=== PATIENT | male | born 1950 | race Caucasian/White ===

== ENCOUNTER 2018-01-01 19:43 | Emergency (ER) | payer OTHER ==
[2018-01-01 19:50] VITALS: BP 149/75; PULSE 77; TEMP 98; BMI 31.1
[2018-01-01] MEDS ORDERED: BACITRACIN 15 GM TUBE TOPICAL OINTMENT TP ONE (20:49)
--- NOTE | 2018-01-01 20:50 | PDOC ---
History of Present Illness - General History Source: Patient Exam Limitations: No Limitations - History of Present Illness Initial Comments: 01/01/18 21:12 CC: Erythema to wound HPI: The patient is a 67 year old male, with a significant past medical history of hypertension, who presents to the emergency department with, two days of worsening erythema of the bilateral lower extremities to wounds. As per patient , his wound care is followed up with Dr. Pinedo. He reports taking off the bandages yesterday when he observed the erythema and irritation. He denies any recent fevers, chills, headache or dizziness. He denies any recent nausea, vomit, diarrhea or constipation. He denies any recent chest pain or shortness of breath. He denies any recent dysuria, frequency, urgency or hematuria. Allergies: Penicillins Social History: Nonsmoker. Denies EtOH use and recreational drug use. Primary Care Physician: Dr. Nair <Trey Babb - Last Filed: 01/01/18 23:40> <Ever Newton - Last Filed: 01/02/18 00:13> - General Chief Complaint: Redness To Affected Area Stated Complaint: EDEMA Time Seen by Provider: 01/01/18 20:39 Past History <Trey Babb - Last Filed: 01/01/18 23:40> - Past Medical History Cancer: Yes (Bladder-tumor removed) COPD: No HTN: Yes - Surgical History Appendectomy: Yes - Immunization History Immunization Up to Date: Yes - Suicide/Smoking/Psychosocial Hx Smoking History: Former smoker Have you smoked in the past 12 months: No If you are a former smoker, when did you quit?: 9 years ago Information on smoking cessation initiated: No <Ever Newton - Last Filed: 01/02/18 00:13> - Past Medical History Allergies/Adverse Reactions: Allergies Allergy/AdvReac Type Severity Reaction Status Date / Time Penicillins Allergy Verified 01/01/18 19:47 Home Medications: Ambulatory Orders Aspirin [ASA -] 1 tab PO DAILY 09/03/17 Benicar - 20 mg PO DAILY 09/03/17 Review of Systems - Review of Systems Able to Perform ROS?: Yes Comments:: 01/01/18 21:12 ROS: A complete review of 10 out of 10 review of systems is taken and is negative apart from what is previously mentioned below and in the HPI. <Trey Babb - Last Filed: 01/01/18 23:40> *Physical Exam - Vital Signs Last Vital Signs Temp Pulse Resp BP Pulse Ox 98 F 77 18 149/75 96 01/01/18 19:48 01/01/18 19:48 01/01/18 19:48 01/01/18 19:48 01/01/18 19:48 - Physical Exam Comments: 01/01/18 21:12 Vitals: Triage vital signs reviewed General Appearance: No acute distress, well nourished, well developed Head: Atraumatic Neck: Supple; No nuchal rigidity Chest Wall: Nontender Cardiac: Regular rate and rhythm, no murmurs, no rubs, no gallops Lungs: Clear to auscultation bilateral, good air movement bilaterally Abdomen: Soft, nondistended, normal bowel sounds, nontender to palpation Genitourinary: Rectal: Exam deferred Extremities: Full range of motion to all extremities, no cyanosis, clubbing, or edema Skin: +Right lower extremity 25x10 cm area of raw excoriated skin without cellulitis or pus. Left lower extremity 5x5 cm area of raw excoriated skin without cellulitis or pus. Neuro: AOX3; Cranial Nerves 2-12 grossly intact, Strength intact to all extremities, Sensation intact to all extremities, gait normal Psych: Normal mood, normal affect <Trey Babb - Last Filed: 01/01/18 23:40> - Vital Signs Last Vital Signs Temp Pulse Resp BP Pulse Ox 98 F 77 18 149/75 96 01/01/18 19:48 01/01/18 19:48 01/01/18 19:48 01/01/18 19:48 01/01/18 19:48 <Ever Newton - Last Filed: 01/02/18 00:13> ED Treatment Course - Medications Given in the ED: ED Medications Discontinued Medications Generic Name Dose Route Start Last Admin Trade Name Freq PRN Reason Stop Dose Admin Bacitracin 1 applic 01/01/18 20:49 01/01/18 20:58 Bacitracin - TP 01/01/18 20:50 1 applic ONCE ONE Administration <Trey Babb - Last Filed: 01/01/18 23:40> Medical Decision Making - Medical Decision Making 01/01/18 21:12 Plan is to apply bacitracin to wounds. <Trey Babb - Last Filed: 01/01/18 23:40> - Medical Decision Making Patient with chronic lower extremity wounds followed in wound care wrapping was placed last week patient was instructed if painful he could remove the wrapping. When he removed the wrapping his legs appeared red and excoriated They appear red and irritated consistent with a contact dermatitis as opposed to cellulitic and infected Findings discussed with Dr. Pinedo. Does not appear to be infected. Patient has follow-up with Dr. Pinedo in one day. We'll cover with bacitracin wrap Findings, the need for follow-up and strict return instructions discussed with patient. <Ever Newton - Last Filed: 01/02/18 00:13> *DC/Admit/Observation/Transfer - Attestations Scribe Attestion: 01/01/18 21:13 Documentation prepared by Trey Babb, acting as medical supervisor for Ever Newton MD. <Trey Babb - Last Filed: 01/01/18 23:40> <Ever Newton - Last Filed: 01/02/18 00:13> Diagnosis at time of Disposition: Dermatitis - Discharge Dispostion Disposition: HOME - Referrals Referrals: Adi Nair [Primary Care Provider] - - Patient Instructions Additional Instructions: Apply bacitracin to bilateral lower extremities twice a day. Follow with Dr. Pinedo on Wednesday. Return to the emergency department immediately for any fever chills spreading redness or for any concerns. - Post Discharge Activity
[2018-01-01] MEDS ORDERED: BACITRACIN 0.9 GM PACKET ONE (20:57)
== END 2018-01-01 21:14 | disposition home or self-care (01) ==
LOC: JER 19:43
DX: L24.9 Irritant contact dermatitis, unspecified cause (principal); R60.0 Localized edema; I10 Essential (primary) hypertension; Z79.82 Long term (current) use of aspirin
CPT/HCPCS: 99282-25

== ENCOUNTER 2018-02-02 19:20 | Inpatient (IN) | payer OTHER ==
[2018-02-02 19:31] VITALS: BMI 31.1
--- NOTE | 2018-02-02 19:31 | PDOC ---
Rapid Medical Evaluation Chief Complaint: Wound Time Seen by Provider: 02/02/18 19:29 Medical Evaluation: Allergies Allergy/AdvReac Type Severity Reaction Status Date / Time Penicillins Allergy Verified 01/03/18 12:27 02/02/18 19:29 S: b/l lower extremity wound infection. send by Dr. arvizu for admission. denies fever/ chills. c/o burning and discharge from the wound. O: patient alert ox 4. erythema to b/l lower extremity. A: wound infection P: pre admit labs and blood culture. patient to the Er for further management of care.
[2018-02-02 20:08] LABS: BASO % 1.1 % (0-2.0); EOS % 1.4 % (0-4.5); HEMATOCRIT 37.2 % (35.4-49); HEMOGLOBIN 12.7 GM/dL (11.7-16.9); LYMPH % 18.6 % (8-40); MCH 29.3 pg (25.7-33.7); MCHC 34.1 g/dl (32.0-35.9); MEAN PLT VOLUME 8.4 fl (7.5-11.1); MONO % 8.1 % (3.8-10.2); NEUT % 70.8 % (42.8-82.8); PLATELET COUNT 284 K/MM3 (134-434); RBC 4.32 M/mm3 (4.00-5.60); RDW 15.2 % (11.9-15.9); WHITE BLOOD COUNT 8.1 K/mm3 (4.0-10.0)
[2018-02-02 20:09] LABS: URINE APPEARANCE CLEAR; URINE BILIRUBIN NEGATIVE (<2.0 mg/dL); URINE COLOR LTYELLOW; URINE GLUCOSE (UA) NEGATIVE (NEGATIVE); URINE KETONE NEGATIVE (NEGATIVE); URINE LEUK ESTERASE NEGATIVE (NEGATIVE); URINE NITRITE NEGATIVE (NEGATIVE); URINE PROTEIN NEGATIVE (NEGATIVE); URINE UROBILINOGEN NEGATIVE mg/dL (0.2-1.0)
[2018-02-02 20:25] LABS: INR 1.16 (0.82-1.09); PROTHROMBIN TIME (PATIENT) 13.1 SEC (9.7-13.0)
[2018-02-02 20:27] LABS: ACTIVATED PTT 32.3 SECONDS (26.9-34.4)
[2018-02-02 20:59] LABS: ALBUMIN 3.7 g/dl (3.4-5.0); ALK PHOS 85 U/L (45-117); ANION GAP 6 (8-16); BILIRUBIN,TOTAL 0.5 mg/dL (0.2-1.0); BLOOD UREA NITROGEN 19 mg/dL (7-18); CALCIUM 8.2 mg/dL (8.5-10.1); CHLORIDE 108 mmol/L (98-107); CO2 25 mmol/L (21-32); CREATININE 0.9 mg/dL (0.7-1.3); GLUCOSE,RANDOM 109 mg/dL (74-106); POTASSIUM 3.8 mmol/L (3.5-5.1); SGOT/AST 19 U/L (15-37); SGPT/ALT 15 U/L (12-78); SODIUM 139 mmol/L (136-145); TOT PROT 7.3 g/dl (6.4-8.2)
--- NOTE | 2018-02-02 21:08 | PDOC ---
History of Present Illness - General History Source: Patient Exam Limitations: No Limitations - History of Present Illness Initial Comments: 02/02/18 22:17 The patient is a 67 year old male with significant past medical history of HTN presents to the emergency department with non healing wound. The patient reports he has bilateral lower extremity wound that's been progressively getting worse. The patient reports wound drainage for the past 4 months. The patient reports getting the wound wrapped with profore on Wednesday, which was changed on Wednesday due to excess wound drainage. The patient reports he was sent in by Dr. García to be admitted. Denies taking any medication today. Denies fever, chills, nausea or vomiting. Surgical History: The patient states he has bilateral femoral stents placed the beginning of last year. Allergies: Penicillin. Social History: Patient denies any history of smoking, use of alcohol or recreational drug. PCP: Thee Larson <Sonia Lozoya - Last Filed: 02/02/18 22:18> <Livan Ku - Last Filed: 02/02/18 23:05> - General Chief Complaint: Wound Stated Complaint: PCP SENT Time Seen by Provider: 02/02/18 19:29 Past History <Sonia Lozoya - Last Filed: 02/02/18 22:18> - Past Medical History Cancer: Yes (Bladder-tumor removed) COPD: No HTN: Yes - Surgical History Appendectomy: Yes - Immunization History Immunization Up to Date: Yes - Suicide/Smoking/Psychosocial Hx Smoking History: Never smoked Have you smoked in the past 12 months: No If you are a former smoker, when did you quit?: 9 years ago Information on smoking cessation initiated: No Hx Alcohol Use: No Drug/Substance Use Hx: No <Livan Ku - Last Filed: 02/02/18 23:05> - Past Medical History Allergies/Adverse Reactions: Allergies Allergy/AdvReac Type Severity Reaction Status Date / Time Penicillins Allergy Verified 01/03/18 12:27 Home Medications: Ambulatory Orders Aspirin [ASA -] 1 tab PO DAILY 09/03/17 Benicar - 20 mg PO DAILY 09/03/17 Review of Systems - Review of Systems Able to Perform ROS?: Yes Comments:: 02/02/18 22:18 CONSTITUTIONAL: No fever, no chills, no fatigue EYES: No visual changes ENT: No ear pain, no sore throat CARDIOVASCULAR: No chest pain, no palpitations RESPIRATORY: No cough, no SOB GI: No abdominal pain, no nausea, no vomiting, no constipation, no diarrhea GENITOURINARY: No dysuria, no frequency, no hematuria MUSKULOSKELETAL: (+) Bilateral non healing. wound. No backpain, no joint pain, no myalgias SKIN: No rash NEURO: No headache <Sonia Lozoya - Last Filed: 02/02/18 22:18> *Physical Exam - Vital Signs Last Vital Signs Temp Pulse Resp BP Pulse Ox 98.6 F 87 18 142/70 97 02/02/18 19:30 02/02/18 19:30 02/02/18 19:30 02/02/18 19:30 02/02/18 19:30 <Sonia Lozoya - Last Filed: 02/02/18 22:18> - Vital Signs Last Vital Signs Temp Pulse Resp BP Pulse Ox 98.6 F 87 18 142/70 97 02/02/18 19:30 02/02/18 19:30 02/02/18 19:30 02/02/18 19:30 02/02/18 19:30 - Physical Exam Comments: 02/02/18 23:02 EXAMINATION CONSTITUTIONAL: Well-appearing; well-nourished; in no apparent distress HEAD: Normocephalic; atraumatic EYES: PERRL; EOM intact ENMT: External appears normal; normal oropharynx NECK: Supple; non-tender; no cervical lymphadenopathy CARD: Normal S1, S2; no murmurs, rubs, or gallops RESP: Normal chest excursion with respiration; breath sounds clear and equal bilaterally; no wheezes, rhonchi, or rales ABD: Soft, non-distended; non-tender; no palpable organomegaly, no palpable hernias EXT: + Extensive erythroderma bilaterally with several large superficial nonhealing ulcers is draining serous sanguinous fluid; + femoral pulses are +2 bilaterally. Popliteal pulses are +1 bilaterally; dorsalis pedis/tibialis posterior are significantly decreased bilaterally; cap refill is less than 2 seconds; SKIN: Warm, dry, see above NEURO: No focal neurological deficiencies. <Livan Ku - Last Filed: 02/02/18 23:05> ED Treatment Course - LABORATORY CBC & Chemistry Diagram: 02/02/18 19:53 02/02/18 19:53 - ADDITIONAL ORDERS Additional order review: Laboratory Results 02/02/18 02/02/18 02/02/18 20:02 19:53 19:53 PT with INR INR PTT (Actin FS) Sodium 139 Potassium 3.8 Chloride 108 H Carbon Dioxide 25 Anion Gap 6 L BUN 19 H Creatinine 0.9 Creat Clearance w eGFR > 60 Random Glucose 109 H Calcium 8.2 L Total Bilirubin 0.5 AST 19 ALT 15 Alkaline Phosphatase 85 Troponin I < 0.02 Total Protein 7.3 Albumin 3.7 Urine Color Ltyellow Urine Appearance Clear Urine pH 5.0 Ur Specific [place] 1.016 Urine Protein Negative Urine Glucose (UA) Negative Urine Ketones Negative Urine Blood Negative Urine Nitrite Negative Urine Bilirubin Negative Urine Urobilinogen Negative Ur Leukocyte Esterase Negative 02/02/18 19:53 PT with INR 13.10 H INR 1.16 H PTT (Actin FS) 32.3 Sodium Potassium Chloride Carbon Dioxide Anion Gap BUN Creatinine Creat Clearance w eGFR Random Glucose Calcium Total Bilirubin AST ALT Alkaline Phosphatase Troponin I Total Protein Albumin Urine Color Urine Appearance Urine pH Ur Specific [place] Urine Protein Urine Glucose (UA) Urine Ketones Urine Blood Urine Nitrite Urine Bilirubin Urine Urobilinogen Ur Leukocyte Esterase 02/02/18 19:53 RBC 4.32 MCV 86.0 MCHC 34.1 RDW 15.2 MPV 8.4 Neutrophils % 70.8 Lymphocytes % 18.6 Monocytes % 8.1 Eosinophils % 1.4 Basophils % 1.1 <Sonia Lozoya - Last Filed: 02/02/18 22:18> - LABORATORY CBC & Chemistry Diagram: 02/02/18 19:53 02/02/18 19:53 - ADDITIONAL ORDERS Additional order review: Laboratory Results 02/02/18 02/02/18 02/02/18 20:02 19:53 19:53 PT with INR INR PTT (Actin FS) Sodium 139 Potassium 3.8 Chloride 108 H Carbon Dioxide 25 Anion Gap 6 L BUN 19 H Creatinine 0.9 Creat Clearance w eGFR > 60 Random Glucose 109 H Calcium 8.2 L Total Bilirubin 0.5 AST 19 ALT 15 Alkaline Phosphatase 85 Troponin I < 0.02 Total Protein 7.3 Albumin 3.7 Urine Color Ltyellow Urine Appearance Clear Urine pH 5.0 Ur Specific [place] 1.016 Urine Protein Negative Urine Glucose (UA) Negative Urine Ketones Negative Urine Blood Negative Urine Nitrite Negative Urine Bilirubin Negative Urine Urobilinogen Negative Ur Leukocyte Esterase Negative 02/02/18 19:53 PT with INR 13.10 H INR 1.16 H PTT (Actin FS) 32.3 Sodium Potassium Chloride Carbon Dioxide Anion Gap BUN Creatinine Creat Clearance w eGFR Random Glucose Calcium Total Bilirubin AST ALT Alkaline Phosphatase Troponin I Total Protein Albumin Urine Color Urine Appearance Urine pH Ur Specific [place] Urine Protein Urine Glucose (UA) Urine Ketones Urine Blood Urine Nitrite Urine Bilirubin Urine Urobilinogen Ur Leukocyte Esterase 02/02/18 19:53 RBC 4.32 MCV 86.0 MCHC 34.1 RDW 15.2 MPV 8.4 Neutrophils % 70.8 Lymphocytes % 18.6 Monocytes % 8.1 Eosinophils % 1.4 Basophils % 1.1 <Livan Ku - Last Filed: 02/02/18 23:05> Medical Decision Making - Medical Decision Making 02/02/18 23:03 Patient is a 67-year-old male with history of hypertension, peripheral vascular disease who presents with worsening likely infected nonhealing lower extremity ulcers. Previously obtain wound culture is noted for MRSA sensitive to vancomycin and Zyvox. Patient referred to the ER for IV vancomycin therapy. Case discussed with Dr. Keith ragland. We'll administer vancomycin 15 mg/kg. Will admit. <Livan Ku - Last Filed: 02/02/18 23:05> *DC/Admit/Observation/Transfer <Sonia Lozoya - Last Filed: 02/02/18 22:18> - Discharge Dispostion Admit: Yes - Attestations Physician Attestion: 02/02/18 23:02 The documentation was prepared by the scribe under my direct supervision. I have reviewed the documentation which correctly represents the findings, medical decision-making and critical action taken by me. <Livan Ku - Last Filed: 02/02/18 23:05> Diagnosis at time of Disposition: Cellulitis of leg Qualifiers: Laterality: unspecified laterality Qualified Code(s): L03.119 - Cellulitis of unspecified part of limb - Discharge Dispostion Condition at time of disposition: Fair
[2018-02-02] MEDS ORDERED: VANCOMYCIN 1,500 MG in DEXTROSE 5%-WATER - 250 ML IVPB ONE (21:43)
[2018-02-02] MEDS ORDERED: VANCOMYCIN 500 MG VIAL (RESTRICTED TO ID ONLY) ONE (21:50)
[2018-02-02] MEDS ORDERED: VANCOMYCIN 1 GRAM (PRE-DOCKED) 1,000 MG/250 ML BAG IVPB ONE (21:50)
[2018-02-02] MEDS ORDERED: ACETAMINOPHEN 325 MG TABLET (FP) PO PRN (23:00)
[2018-02-02] MEDS ORDERED: SILVER SULFADIAZINE 1% TOP CREAM 50 GM JAR TP ONE ×2 (23:55→23:57)
[2018-02-03 07:33] LABS: BASO % 0.6 % (0-2.0); EOS % 1.3 % (0-4.5); HEMATOCRIT 37.3 % (35.4-49); HEMOGLOBIN 12.7 GM/dL (11.7-16.9); LYMPH % 16.1 % (8-40); MCH 29.4 pg (25.7-33.7); MEAN CELL VOLUME 86.6 fl (80-96); MEAN PLT VOLUME 8.3 fl (7.5-11.1); MONO % 10.5 % (3.8-10.2); NEUT % 71.5 % (42.8-82.8); PLATELET COUNT 275 K/MM3 (134-434); RBC 4.31 M/mm3 (4.00-5.60); WHITE BLOOD COUNT 7.5 K/mm3 (4.0-10.0)
[2018-02-03 07:53] LABS: ALBUMIN 3.4 g/dl (3.4-5.0); ANION GAP 6 (8-16); BLOOD UREA NITROGEN 15 mg/dL (7-18); CALCIUM 8.2 mg/dL (8.5-10.1); CHLORIDE 107 mmol/L (98-107); CO2 26 mmol/L (21-32); GLUCOSE,RANDOM 87 mg/dL (74-106); POTASSIUM 4.2 mmol/L (3.5-5.1); SODIUM 139 mmol/L (136-145)
[2018-02-03 07:57] LABS: ALK PHOS 79 U/L (45-117); BILIRUBIN,TOTAL 0.8 mg/dL (0.2-1.0); CREATININE 0.7 mg/dL (0.7-1.3); SGOT/AST 18 U/L (15-37); SGPT/ALT 14 U/L (12-78); TOT PROT 6.8 g/dl (6.4-8.2)
--- NOTE | 2018-02-03 10:23 | HP ---
Admitting History and Physical - Primary Care Physician PCP: Matias Ruiz - Admission History of Present Illness: -67 year old male with significant past medical history of HTN presents to the emergency department with non healing wound. The patient reports he has bilateral lower extremity wound that's been progressively getting worse. The patient reports wound drainage for the past 4 months. The patient reports getting the wound wrapped with profore on Wednesday, which was changed on Wednesday due to excess wound drainage. sent to ER by ID he had bilateral femoral stents placed the beginning of last year. A - Past Medical History Cardiovascular: Yes: HTN, Other (pvd) Heme/Onc: Yes: Cancer (bladder cancer) - Past Surgical History Past Surgical History: Yes: Appendectomy, Stent, Vein Stripping/Ligation (b/l common iliac vein stent) - Smoking History Smoking history: Never smoked Have you smoked in the past 12 months: No If you are a former smoker, when did you quit?: 9 years ago - Alcohol/Substance Use Hx Alcohol Use: No Home Medications - Allergies Allergies/Adverse Reactions: Allergies Allergy/AdvReac Type Severity Reaction Status Date / Time Penicillins Allergy Verified 01/03/18 12:27 - Home Medications Home Medications: Ambulatory Orders Aspirin [ASA -] 1 tab PO DAILY 09/03/17 Benicar - 20 mg PO DAILY 09/03/17 Physical Examination Vital Signs: Vital Signs Temperature 98.3 F 02/03/18 06:00 Pulse Rate 76 02/03/18 06:00 Respiratory Rate 16 02/03/18 06:00 Blood Pressure 126/61 02/03/18 06:00 O2 Sat by Pulse Oximetry (%) 97 02/03/18 03:15 Constitutional: Yes: No Distress HENT: Yes: Atraumatic Neck: Yes: Supple Cardiovascular: Yes: Regular Rate and Rhythm Respiratory: Yes: CTA Bilaterally Gastrointestinal: Yes: Normal Bowel Sounds Extremities: Yes: Other (chronic skin changes of pvd superimposed cellulitis) Neurological: Yes: Alert, Oriented Labs: CBC, BMP 02/03/18 06:35 02/03/18 06:35 Problem List - Problems (1) Cellulitis of leg Assessment/Plan: on abx per id fu labs Code(s): L03.119 - CELLULITIS OF UNSPECIFIED PART OF LIMB Qualifiers: Laterality: unspecified laterality Qualified Code(s): L03.119 - Cellulitis of unspecified part of limb (2) Venous insufficiency Assessment/Plan: dr arvizu on board Code(s): I87.2 - VENOUS INSUFFICIENCY (CHRONIC) (PERIPHERAL) Assessment/Plan Laboratory Tests 02/02/18 02/02/18 02/02/18 19:53 19:53 19:53 WBC 8.1 RBC 4.32 Hgb 12.7 Hct 37.2 MCV 86.0 MCH 29.3 MCHC 34.1 RDW 15.2 Plt Count 284 MPV 8.4 Neutrophils % 70.8 Lymphocytes % 18.6 Monocytes % 8.1 Eosinophils % 1.4 Basophils % 1.1 PT with INR 13.10 H INR 1.16 H PTT (Actin FS) 32.3 Sodium 139 Potassium 3.8 Chloride 108 H Carbon Dioxide 25 Anion Gap 6 L BUN 19 H Creatinine 0.9 Creat Clearance w eGFR > 60 Random Glucose 109 H Calcium 8.2 L Total Bilirubin 0.5 AST 19 ALT 15 Alkaline Phosphatase 85 Troponin I Total Protein 7.3 Albumin 3.7 Urine Color Urine Appearance Urine pH Ur Specific [place] Urine Protein Urine Glucose (UA) Urine Ketones Urine Blood Urine Nitrite Urine Bilirubin Urine Urobilinogen Ur Leukocyte Esterase 02/02/18 02/02/18 02/03/18 19:53 20:02 06:35 WBC 7.5 RBC 4.31 Hgb 12.7 Hct 37.3 MCV 86.6 MCH 29.4 MCHC 34.0 RDW 15.0 Plt Count 275 MPV 8.3 Neutrophils % 71.5 Lymphocytes % 16.1 Monocytes % 10.5 H Eosinophils % 1.3 Basophils % 0.6 PT with INR INR PTT (Actin FS) Sodium Potassium Chloride Carbon Dioxide Anion Gap BUN Creatinine Creat Clearance w eGFR Random Glucose Calcium Total Bilirubin AST ALT Alkaline Phosphatase Troponin I < 0.02 Total Protein Albumin Urine Color Ltyellow Urine Appearance Clear Urine pH 5.0 Ur Specific [place] 1.016 Urine Protein Negative Urine Glucose (UA) Negative Urine Ketones Negative Urine Blood Negative Urine Nitrite Negative Urine Bilirubin Negative Urine Urobilinogen Negative Ur Leukocyte Esterase Negative 02/03/18 06:35 WBC RBC Hgb Hct MCV MCH MCHC RDW Plt Count MPV Neutrophils % Lymphocytes % Monocytes % Eosinophils % Basophils % PT with INR INR PTT (Actin FS) Sodium 139 Potassium 4.2 Chloride 107 Carbon Dioxide 26 Anion Gap 6 L BUN 15 D Creatinine 0.7 D Creat Clearance w eGFR > 60 Random Glucose 87 D Calcium 8.2 L Total Bilirubin 0.8 D AST 18 ALT 14 Alkaline Phosphatase 79 Troponin I Total Protein 6.8 Albumin 3.4 Urine Color Urine Appearance Urine pH Ur Specific [place] Urine Protein Urine Glucose (UA) Urine Ketones Urine Blood Urine Nitrite Urine Bilirubin Urine Urobilinogen Ur Leukocyte Esterase Active Medications Generic Name Dose Route Start Last Admin Trade Name Carie PRN Reason Stop Dose Admin Acetaminophen 650 mg 02/02/18 23:00 Tylenol - PO Q6H PRN FEVER Aspirin 81 mg 02/03/18 10:00 Asa - PO DAILY ENMANUEL Heparin Sodium (Porcine) 5,000 unit 02/03/18 10:00 Heparin - SQ BID ENMANUEL Valsartan 160 mg 02/03/18 10:00 Diovan - PO DAILY ENMANUEL Active Medications Generic Name Dose Route Start Last Admin Trade Name Aaronq PRN Reason Stop Dose Admin Acetaminophen 650 mg 02/02/18 23:00 Tylenol - PO Q6H PRN FEVER Aspirin 81 mg 02/03/18 10:00 02/04/18 10:43 Asa - PO 81 mg DAILY ENMANUEL Administration Heparin Sodium (Porcine) 5,000 unit 02/03/18 10:00 02/04/18 10:42 Heparin - SQ 5,000 unit BID ENMANUEL Administration Vancomycin HCl 1,250 mg/ 250 mls @ 250 mls/2 hr 02/03/18 14:30 02/03/18 16:42 Dextrose IVPB 250 mls/2 hr Q24H ENMANUEL Administration Protocol Valsartan 160 mg 02/03/18 10:00 02/04/18 10:43 Diovan - PO 160 mg DAILY ENMANUEL Administration
[2018-02-03] MEDS: ASPIRIN 81 MG CHEWABLE TABLETS PO SCH (11:00)
[2018-02-03] MEDS: VALSARTAN 160 MG TABLET (UD) PO SCH (11:00)
[2018-02-03] MEDS: HEPARIN NA (PORCINE) 5,000 UNITS/ML 1ML VIAL SQ SCH ×2 (11:00→21:32)
--- NOTE | 2018-02-03 11:27 | EKG ---
Test Reason : Blood Pressure : / mmHG Vent. Rate : 073 BPM Atrial Rate : 073 BPM P-R Int : 140 ms QRS Dur : 092 ms QT Int : 398 ms P-R-T Axes : 052 -06 021 degrees QTc Int : 438 ms NORMAL SINUS RHYTHM NORMAL ECG NO PREVIOUS ECGS AVAILABLE Confirmed by CHELSEA BLANCA MD ([id number]) on 02/03/2018 11:27:28 AM Referred By: Confirmed By:CHELSEA BLANCA MD
--- NOTE | 2018-02-03 14:26 | CON.ID ---
Consult Consult Specialty:: infectious diseases Reason for Consultation:: mrsa wound infection - History of Present Illness Chief Complaint: non healing of the wounds mrsa wound infection History of Present Illness: -67 year old male with significant past medical history of HTN presents who has been having non healing of his wounds for more than 6 months now. patient had been treated as outpatient and failed treatment. patient started ahving increased pain since last couple of months and in the last few weeks it increased a lot followed with profuse discharge and the wounds becoming more red. his rt ext especially is soaking the cx were send from the right ext and found to ahve mrsa of the wound.Also his wounds started having a foul smell. The patient reports he has bilateral lower extremity wound that's been progressively getting worse. The patient reports wound drainage for the past 4 months. The patient reports getting the wound wrapped with profore on Wednesday, which was changed on Wednesday due to excess wound drainage. patient also has poor vasculaer supply and had bilateral stents placed patient runs a daily business currently his wounds are infected with foul smell and profuse discharge - History Source History Provided By: Patient Limitations to Obtaining History: No Limitations - Past Medical History Cardio/Vascular: Yes: HTN - Past Surgical History Past Surgical History: Yes: Appendectomy, Stent, Vein Stripping/Ligation (b/l common iliac vein stent) - Alcohol/Substance Use Hx Alcohol Use: No - Smoking History Smoking history: Never smoked Have you smoked in the past 12 months: No If you are a former smoker, when did you quit?: 9 years ago Home Medications - Allergies Allergies/Adverse Reactions: Allergies Allergy/AdvReac Type Severity Reaction Status Date / Time Penicillins Allergy Verified 01/03/18 12:27 - Home Medications Home Medications: Ambulatory Orders Aspirin [ASA -] 1 tab PO DAILY 09/03/17 Benicar - 20 mg PO DAILY 09/03/17 Review of Systems - Review of Systems Constitutional: reports: No Symptoms Eyes: reports: No Symptoms HENT: reports: No Symptoms Neck: reports: No Symptoms Cardiovascular: reports: No Symptoms Respiratory: reports: No Symptoms Gastrointestinal: reports: No Symptoms Musculoskeletal: reports: Other Integumentary: reports: Erythema, Wound, Other (draiange from the wound) Neurological: reports: No Symptoms Endocrine: reports: No Symptoms Hematology/Lymphatic: reports: No Symptoms Psychiatric: reports: No Symptoms Physical Exam Vital Signs: Vital Signs Temperature 98.3 F 02/03/18 06:00 Pulse Rate 68 02/03/18 10:00 Respiratory Rate 18 02/03/18 10:00 Blood Pressure 120/60 02/03/18 10:00 O2 Sat by Pulse Oximetry (%) 96 02/03/18 09:00 Constitutional: Yes: Well Nourished, No Distress, Calm Eyes: Yes: Conjunctiva Clear Cardiovascular: Yes: Regular Rate and Rhythm Respiratory: Yes: Regular, CTA Bilaterally Gastrointestinal: Yes: Normal Bowel Sounds, Soft Musculoskeletal: Yes: Other Extremities: Yes: Other Wound/Incision: Yes: Other (rt sided cellulittis and non healing wound with infection and dtraiange extending from the knee to the ankle left side non healing wound from the mid leg to ankle foul smell present) Neurological: Yes: Alert, Oriented Psychiatric: Yes: Alert, Oriented Labs: CBC, BMP 02/03/18 06:35 02/03/18 06:35 Imaging - Results Chest X-ray: Report Reviewed, Image Reviewed Assessment/Plan Problem List - Problems (1) Cellulitis of leg Code(s): L03.119 - CELLULITIS OF UNSPECIFIED PART OF LIMB Qualifiers: Laterality: unspecified laterality Qualified Code(s): L03.119 - Cellulitis of unspecified part of limb (2) Venous insufficiency Code(s): I87.2 - VENOUS INSUFFICIENCY (CHRONIC) (PERIPHERAL) 3 non healing wounds of the legs 4 wound infection--mrsa patient with more than 6 months non healing wounds of both legs with mrsa infection and failed out patient therapy plan will await for the recent cx send from the wound care vancomycin patient will need 3 weeks once we have everything in hand then we will amke final paln follow vanco levels
[2018-02-03] MEDS: VANCOMYCIN 1,250 MG in DEXTROSE 5%-WATER - 250 ML IVPB SCH (16:42)
[2018-02-04] MEDS: HEPARIN NA (PORCINE) 5,000 UNITS/ML 1ML VIAL SQ SCH ×2 (10:42→21:44)
[2018-02-04] MEDS: VALSARTAN 160 MG TABLET (UD) PO SCH (10:43)
[2018-02-04] MEDS: ASPIRIN 81 MG CHEWABLE TABLETS PO SCH (10:43)
--- NOTE | 2018-02-04 12:48 | PN ---
Progress Note, Physician - Current Medication List Current Medications: Active Medications Acetaminophen (Tylenol -) 650 mg PO Q6H PRN PRN Reason: FEVER Aspirin (Asa -) 81 mg PO DAILY [facility] Last Admin: 02/04/18 10:43 Dose: 81 mg Heparin Sodium (Porcine) (Heparin -) 5,000 unit SQ BID [facility] Last Admin: 02/04/18 10:42 Dose: 5,000 unit Vancomycin HCl 1,250 mg/ (Dextrose) 250 mls @ 250 mls/2 hr IVPB Q24H [facility] PRN Reason: Protocol Last Admin: 02/03/18 16:42 Dose: 250 mls/2 hr Valsartan (Diovan -) 160 mg PO DAILY [facility] Last Admin: 02/04/18 10:43 Dose: 160 mg - Objective Vital Signs: Vital Signs Temperature 97.9 F 02/04/18 01:42 Pulse Rate 67 02/04/18 01:42 Respiratory Rate 19 02/04/18 09:00 Blood Pressure 110/67 02/04/18 01:42 O2 Sat by Pulse Oximetry (%) 96 02/03/18 09:00 Constitutional: Yes: No Distress HENT: Yes: Atraumatic Neck: Yes: Supple Cardiovascular: Yes: Regular Rate and Rhythm Respiratory: Yes: CTA Bilaterally Gastrointestinal: Yes: Normal Bowel Sounds Extremities: Yes: Other (chronic skin changes, cellulitis) Edema: Yes Edema: LLE: Trace, RLE: Trace Peripheral Pulses WNL: Yes Neurological: Yes: Alert, Oriented Labs: CBC, BMP 02/03/18 06:35 02/03/18 06:35 INR, PTT INR 1.16 (0.82-1.09) H 02/02/18 19:53 Problem List - Problems (1) Cellulitis of leg Assessment/Plan: on abx per id fu labs Code(s): L03.119 - CELLULITIS OF UNSPECIFIED PART OF LIMB Qualifiers: Laterality: unspecified laterality Qualified Code(s): L03.119 - Cellulitis of unspecified part of limb (2) Venous insufficiency Assessment/Plan: dr arvizu on board Code(s): I87.2 - VENOUS INSUFFICIENCY (CHRONIC) (PERIPHERAL)
[2018-02-04] MEDS: VANCOMYCIN 1,250 MG in DEXTROSE 5%-WATER - 250 ML IVPB SCH (14:50)
--- NOTE | 2018-02-04 15:00 | PN ---
Progress Note, Physician History of Present Illness: patent stable no new issues wounds healing well - Current Medication List Current Medications: Active Medications Acetaminophen (Tylenol -) 650 mg PO Q6H PRN PRN Reason: FEVER Aspirin (Asa -) 81 mg PO DAILY [facility] Last Admin: 02/04/18 10:43 Dose: 81 mg Heparin Sodium (Porcine) (Heparin -) 5,000 unit SQ BID [facility] Last Admin: 02/04/18 10:42 Dose: 5,000 unit Vancomycin HCl 1,250 mg/ (Dextrose) 250 mls @ 250 mls/2 hr IVPB Q24H [facility] PRN Reason: Protocol Last Admin: 02/04/18 14:50 Dose: 250 mls/2 hr Valsartan (Diovan -) 160 mg PO DAILY [facility] Last Admin: 02/04/18 10:43 Dose: 160 mg - Objective Vital Signs: Vital Signs Temperature 98.1 F 02/04/18 10:11 Pulse Rate 71 02/04/18 10:11 Respiratory Rate 19 02/04/18 10:11 Blood Pressure 129/64 02/04/18 10:11 O2 Sat by Pulse Oximetry (%) 96 02/03/18 09:00 Constitutional: Yes: No Distress, Calm HENT: Yes: Atraumatic Cardiovascular: Yes: Regular Rate and Rhythm Respiratory: Yes: Regular, CTA Bilaterally Gastrointestinal: Yes: Normal Bowel Sounds, Soft Musculoskeletal: Yes: Other Extremities: Yes: Erythema, Other (wounds looking good starting to heal well) Integumentary: Yes: Erythema, Other Wound/Incision: Yes: Open to air, Other (oozing less) Neurological: Yes: Alert, Oriented Psychiatric: Yes: Alert, Oriented Labs: CBC, BMP 02/03/18 06:35 02/03/18 06:35 INR, PTT INR 1.16 (0.82-1.09) H 02/02/18 19:53 Assessment/Plan Problem List - Problems (1) Cellulitis of leg Code(s): L03.119 - CELLULITIS OF UNSPECIFIED PART OF LIMB Qualifiers: Laterality: unspecified laterality Qualified Code(s): L03.119 - Cellulitis of unspecified part of limb (2) Venous insufficiency Code(s): I87.2 - VENOUS INSUFFICIENCY (CHRONIC) (PERIPHERAL) 3 non healing wounds of the legs 4 wound infection--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
--- NOTE | 2018-02-04 16:49 | PN ---
Progress Note (short form) - Note Progress Note: Vascular Surgery pt seen and examined. Looks much better. Legs dry, less cellulitic. Please apply alginate with agatha daily. Leg elevation. IV antibiotics. Kiran arvizu DO
[2018-02-05] MEDS: ASPIRIN 81 MG CHEWABLE TABLETS PO SCH (09:35)
[2018-02-05] MEDS: VALSARTAN 160 MG TABLET (UD) PO SCH (09:35)
[2018-02-05] MEDS: HEPARIN NA (PORCINE) 5,000 UNITS/ML 1ML VIAL SQ SCH ×2 (09:38→21:06)
--- NOTE | 2018-02-05 13:42 | PN ---
Progress Note, Physician History of Present Illness: no complaints doing well pain in the legs legs drying - Current Medication List Current Medications: Active Medications Acetaminophen (Tylenol -) 650 mg PO Q6H PRN PRN Reason: FEVER Aspirin (Asa -) 81 mg PO DAILY [facility] Last Admin: 02/05/18 09:35 Dose: 81 mg Heparin Sodium (Porcine) (Heparin -) 5,000 unit SQ BID [facility] Last Admin: 02/05/18 09:38 Dose: 5,000 unit Vancomycin HCl 1,250 mg/ (Dextrose) 250 mls @ 250 mls/2 hr IVPB Q24H [facility] PRN Reason: Protocol Last Admin: 02/04/18 14:50 Dose: 250 mls/2 hr Valsartan (Diovan -) 160 mg PO DAILY [facility] Last Admin: 02/05/18 09:35 Dose: 160 mg - Objective Vital Signs: Vital Signs Temperature 98.1 F 02/05/18 06:00 Pulse Rate 72 02/05/18 10:00 Respiratory Rate 18 02/05/18 10:00 Blood Pressure 112/52 02/05/18 10:00 O2 Sat by Pulse Oximetry (%) 97 02/05/18 09:00 Constitutional: Yes: Calm, Mild Distress Cardiovascular: Yes: Regular Rate and Rhythm Respiratory: Yes: Regular, CTA Bilaterally Gastrointestinal: Yes: Normal Bowel Sounds, Soft Musculoskeletal: Yes: WNL Extremities: Yes: Other Integumentary: Yes: Other Wound/Incision: Yes: Clean/Dry, Open to air Neurological: Yes: Alert, Oriented Psychiatric: Yes: Alert, Oriented Labs: CBC, BMP 02/03/18 06:35 02/03/18 06:35 INR, PTT INR 1.16 (0.82-1.09) H 02/02/18 19:53 Assessment/Plan Problem List - Problems (1) Cellulitis of leg Code(s): L03.119 - CELLULITIS OF UNSPECIFIED PART OF LIMB Qualifiers: Laterality: unspecified laterality Qualified Code(s): L03.119 - Cellulitis of unspecified part of limb (2) Venous insufficiency Code(s): I87.2 - VENOUS INSUFFICIENCY (CHRONIC) (PERIPHERAL) 3 non healing wounds of the legs 4 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
--- NOTE | 2018-02-05 16:12 | PN ---
Progress Note, Physician History of Present Illness: doing well - Current Medication List Current Medications: Active Medications Acetaminophen (Tylenol -) 650 mg PO Q6H PRN PRN Reason: FEVER Aspirin (Asa -) 81 mg PO DAILY [facility] Last Admin: 02/05/18 09:35 Dose: 81 mg Heparin Sodium (Porcine) (Heparin -) 5,000 unit SQ BID [facility] Last Admin: 02/05/18 09:38 Dose: 5,000 unit Vancomycin HCl 1,250 mg/ (Dextrose) 250 mls @ 250 mls/2 hr IVPB Q24H [facility] PRN Reason: Protocol Last Admin: 02/04/18 14:50 Dose: 250 mls/2 hr Valsartan (Diovan -) 160 mg PO DAILY [facility] Last Admin: 02/05/18 09:35 Dose: 160 mg - Objective Vital Signs: Vital Signs Temperature 97.9 F 02/05/18 14:35 Pulse Rate 68 02/05/18 14:35 Respiratory Rate 18 02/05/18 14:35 Blood Pressure 122/54 02/05/18 14:35 O2 Sat by Pulse Oximetry (%) 97 02/05/18 09:00 Constitutional: Yes: No Distress HENT: Yes: Atraumatic Neck: Yes: Supple Cardiovascular: Yes: Regular Rate and Rhythm Respiratory: Yes: CTA Bilaterally Gastrointestinal: Yes: Normal Bowel Sounds Extremities: Yes: Other (cellulitis b/l frances improving) Neurological: Yes: Alert, Oriented Labs: CBC, BMP 02/03/18 06:35 02/03/18 06:35 INR, PTT INR 1.16 (0.82-1.09) H 02/02/18 19:53 Problem List - Problems (1) Cellulitis of leg Assessment/Plan: on abx per id fu labs cxs p Code(s): L03.119 - CELLULITIS OF UNSPECIFIED PART OF LIMB Qualifiers: Laterality: unspecified laterality Qualified Code(s): L03.119 - Cellulitis of unspecified part of limb (2) Venous insufficiency Assessment/Plan: dr arvizu on board Code(s): I87.2 - VENOUS INSUFFICIENCY (CHRONIC) (PERIPHERAL)
[2018-02-05] MEDS: VANCOMYCIN 1,250 MG in DEXTROSE 5%-WATER - 250 ML IVPB SCH (16:44)
[2018-02-05] MEDS: VANCOMYCIN 2,000 MG in DEXTROSE 5%-WATER - 500 ML IVPB SCH (19:51)
[2018-02-05] MEDS: DOCUSATE SODIUM 100 MG CAPSULE (FP) PO SCH (21:07)
[2018-02-06] MEDS: VALSARTAN 160 MG TABLET (UD) PO SCH (09:20)
[2018-02-06] MEDS: DOCUSATE SODIUM 100 MG CAPSULE (FP) PO SCH ×2 (09:20→21:14)
[2018-02-06] MEDS: ASPIRIN 81 MG CHEWABLE TABLETS PO SCH (09:21)
[2018-02-06] MEDS: HEPARIN NA (PORCINE) 5,000 UNITS/ML 1ML VIAL SQ SCH ×2 (09:22→21:14)
--- NOTE | 2018-02-06 16:16 | PN ---
Progress Note, Physician - Current Medication List Current Medications: Active Medications Acetaminophen (Tylenol -) 650 mg PO Q6H PRN PRN Reason: FEVER Aspirin (Asa -) 81 mg PO DAILY [facility] Last Admin: 02/06/18 09:21 Dose: 81 mg Docusate Sodium (Colace -) 100 mg PO BID [facility] Last Admin: 02/06/18 09:20 Dose: 100 mg Heparin Sodium (Porcine) (Heparin -) 5,000 unit SQ BID [facility] Last Admin: 02/06/18 09:22 Dose: 5,000 unit Vancomycin HCl 2,000 mg/ (Dextrose) 500 mls @ 250 mls/hr IVPB Q24H [facility] Last Admin: 02/05/18 19:51 Dose: 250 mls/hr Valsartan (Diovan -) 160 mg PO DAILY [facility] Last Admin: 02/06/18 09:20 Dose: 160 mg - Objective Vital Signs: Vital Signs Temperature 97.9 F 02/06/18 14:33 Pulse Rate 71 02/06/18 14:33 Respiratory Rate 18 02/06/18 14:33 Blood Pressure 114/52 02/06/18 14:33 O2 Sat by Pulse Oximetry (%) 97 02/06/18 09:00 Constitutional: Yes: No Distress HENT: Yes: Atraumatic Neck: Yes: Supple Cardiovascular: Yes: Regular Rate and Rhythm Respiratory: Yes: CTA Bilaterally Gastrointestinal: Yes: Normal Bowel Sounds Extremities: Yes: WNL Neurological: Yes: Alert, Oriented Labs: CBC, BMP 02/03/18 06:35 02/03/18 06:35 INR, PTT INR 1.16 (0.82-1.09) H 02/02/18 19:53 Problem List - Problems (1) Cellulitis of leg Assessment/Plan: on abx per id fu labs cxs p Code(s): L03.119 - CELLULITIS OF UNSPECIFIED PART OF LIMB Qualifiers: Laterality: unspecified laterality Qualified Code(s): L03.119 - Cellulitis of unspecified part of limb (2) Venous insufficiency Assessment/Plan: dr arvizu on board Code(s): I87.2 - VENOUS INSUFFICIENCY (CHRONIC) (PERIPHERAL)
[2018-02-06] MEDS: VANCOMYCIN 2,000 MG in DEXTROSE 5%-WATER - 500 ML IVPB SCH (17:19)
[2018-02-07] MEDS: ASPIRIN 81 MG CHEWABLE TABLETS PO SCH (09:22)
[2018-02-07] MEDS: VALSARTAN 160 MG TABLET (UD) PO SCH (09:22)
[2018-02-07] MEDS: DOCUSATE SODIUM 100 MG CAPSULE (FP) PO SCH ×2 (09:22→21:20)
[2018-02-07] MEDS: HEPARIN NA (PORCINE) 5,000 UNITS/ML 1ML VIAL SQ SCH ×2 (09:22→21:19)
--- NOTE | 2018-02-07 14:20 | PN ---
Progress Note, Physician History of Present Illness: no complaints doing well pain in the legs legs drying - Current Medication List Current Medications: Active Medications Acetaminophen (Tylenol -) 650 mg PO Q6H PRN PRN Reason: FEVER Aspirin (Asa -) 81 mg PO DAILY [facility] Last Admin: 02/07/18 09:22 Dose: 81 mg Docusate Sodium (Colace -) 100 mg PO BID [facility] Last Admin: 02/07/18 09:22 Dose: 100 mg Heparin Sodium (Porcine) (Heparin -) 5,000 unit SQ BID [facility] Last Admin: 02/07/18 09:22 Dose: 5,000 unit Vancomycin HCl 2,000 mg/ (Dextrose) 500 mls @ 250 mls/hr IVPB Q24H [facility] Last Admin: 02/06/18 17:19 Dose: 250 mls/hr Valsartan (Diovan -) 160 mg PO DAILY [facility] Last Admin: 02/07/18 09:22 Dose: 160 mg - Objective Vital Signs: Vital Signs Temperature 98.6 F 02/07/18 09:07 Pulse Rate 72 02/07/18 09:07 Respiratory Rate 18 02/07/18 09:07 Blood Pressure 111/51 02/07/18 09:07 O2 Sat by Pulse Oximetry (%) 97 02/07/18 09:00 Constitutional: Yes: No Distress, Calm Cardiovascular: Yes: Regular Rate and Rhythm Respiratory: Yes: Regular, CTA Bilaterally Gastrointestinal: Yes: Normal Bowel Sounds, Soft Musculoskeletal: Yes: WNL Extremities: Yes: Other Wound/Incision: Yes: Open to air, Other (still with drain) Neurological: Yes: Alert, Oriented Psychiatric: Yes: Alert, Oriented Labs: CBC, BMP 02/03/18 06:35 02/03/18 06:35 INR, PTT INR 1.16 (0.82-1.09) H 02/02/18 19:53 Assessment/Plan Problem List - Problems (1) Cellulitis of leg Code(s): L03.119 - CELLULITIS OF UNSPECIFIED PART OF LIMB Qualifiers: Laterality: unspecified laterality Qualified Code(s): L03.119 - Cellulitis of unspecified part of limb (2) Venous insufficiency Code(s): I87.2 - VENOUS INSUFFICIENCY (CHRONIC) (PERIPHERAL) 3 non healing wounds of the legs 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
[2018-02-07] MEDS: VANCOMYCIN 2,000 MG in DEXTROSE 5%-WATER - 500 ML IVPB SCH (16:57)
--- NOTE | 2018-02-07 20:42 | PN ---
Progress Note, Physician History of Present Illness: doing well - Current Medication List Current Medications: Active Medications Acetaminophen (Tylenol -) 650 mg PO Q6H PRN PRN Reason: FEVER Aspirin (Asa -) 81 mg PO DAILY [facility] Last Admin: 02/07/18 09:22 Dose: 81 mg Docusate Sodium (Colace -) 100 mg PO BID [facility] Last Admin: 02/07/18 09:22 Dose: 100 mg Heparin Sodium (Porcine) (Heparin -) 5,000 unit SQ BID [facility] Last Admin: 02/07/18 09:22 Dose: 5,000 unit Vancomycin HCl 2,000 mg/ (Dextrose) 500 mls @ 250 mls/hr IVPB Q24H [facility] Last Admin: 02/07/18 16:57 Dose: 250 mls/hr Valsartan (Diovan -) 160 mg PO DAILY [facility] Last Admin: 02/07/18 09:22 Dose: 160 mg - Objective Vital Signs: Vital Signs Temperature 97.6 F 02/07/18 20:38 Pulse Rate 72 02/07/18 20:38 Respiratory Rate 20 02/07/18 20:38 Blood Pressure 140/55 02/07/18 20:38 O2 Sat by Pulse Oximetry (%) 97 02/07/18 09:00 Constitutional: Yes: No Distress HENT: Yes: Atraumatic Neck: Yes: Supple Cardiovascular: Yes: Regular Rate and Rhythm Respiratory: Yes: CTA Bilaterally Gastrointestinal: Yes: Normal Bowel Sounds Extremities: Yes: Other (cellulitis) Neurological: Yes: Alert, Oriented Labs: CBC, BMP 02/03/18 06:35 02/03/18 06:35 INR, PTT INR 1.16 (0.82-1.09) H 02/02/18 19:53 Problem List - Problems (1) Cellulitis of leg Assessment/Plan: on abx per id fu labs cxs p Code(s): L03.119 - CELLULITIS OF UNSPECIFIED PART OF LIMB Qualifiers: Laterality: unspecified laterality Qualified Code(s): L03.119 - Cellulitis of unspecified part of limb (2) Venous insufficiency Assessment/Plan: dr arvizu on board Code(s): I87.2 - VENOUS INSUFFICIENCY (CHRONIC) (PERIPHERAL)
[2018-02-08] MEDS ORDERED: PT OWN MED DRAWER 7, Y5N ONE (09:14)
[2018-02-08] MEDS: VALSARTAN 160 MG TABLET (UD) PO SCH ×2 (09:40→11:42)
[2018-02-08] MEDS: ASPIRIN 81 MG CHEWABLE TABLETS PO SCH (09:40)
[2018-02-08] MEDS: DOCUSATE SODIUM 100 MG CAPSULE (FP) PO SCH ×2 (09:40→21:14)
[2018-02-08] MEDS ORDERED: PICC LINE 8 ML FLUSH PROTOCOL IVPUSH PRN (11:27)
[2018-02-08] MEDS: HEPARIN NA (PORCINE) 5,000 UNITS/ML 1ML VIAL SQ SCH ×2 (11:43→21:14)
--- NOTE | 2018-02-08 13:49 | PN ---
Progress Note, Physician History of Present Illness: stable no issues - Current Medication List Current Medications: Active Medications Acetaminophen (Tylenol -) 650 mg PO Q6H PRN PRN Reason: FEVER Aspirin (Asa -) 81 mg PO DAILY [facility] Last Admin: 02/08/18 09:40 Dose: 81 mg Docusate Sodium (Colace -) 100 mg PO BID [facility] Last Admin: 02/08/18 09:40 Dose: 100 mg Heparin Sodium (Porcine) (Heparin -) 5,000 unit SQ BID [facility] Last Admin: 02/08/18 11:43 Dose: 5,000 unit IV Flush (Picc Line Flush) 8 ml IVPUSH PRN PRN PRN Reason: Protocol Vancomycin HCl 2,000 mg/ (Dextrose) 500 mls @ 250 mls/hr IVPB Q24H [facility] Last Admin: 02/07/18 16:57 Dose: 250 mls/hr Valsartan (Diovan -) 160 mg PO DAILY [facility] Last Admin: 02/08/18 11:42 Dose: Not Given - Objective Vital Signs: Vital Signs Temperature 98.0 F 02/08/18 09:35 Pulse Rate 74 02/08/18 11:37 Respiratory Rate 18 02/08/18 09:35 Blood Pressure 126/59 02/08/18 11:37 O2 Sat by Pulse Oximetry (%) 97 02/08/18 09:00 Constitutional: Yes: No Distress, Calm Cardiovascular: Yes: Regular Rate and Rhythm Respiratory: Yes: Regular, CTA Bilaterally Gastrointestinal: Yes: Normal Bowel Sounds, Soft Musculoskeletal: Yes: Other Extremities: Yes: Other Integumentary: Yes: Erythema, Other (non healing ulcer) Wound/Incision: Yes: Open to air, Draining Neurological: Yes: Alert, Oriented Psychiatric: Yes: Alert, Oriented Labs: CBC, BMP 02/03/18 06:35 02/03/18 06:35 INR, PTT INR 1.16 (0.82-1.09) H 02/02/18 19:53 Assessment/Plan Problem List - Problems (1) Cellulitis of leg Code(s): L03.119 - CELLULITIS OF UNSPECIFIED PART OF LIMB Qualifiers: Laterality: unspecified laterality Qualified Code(s): L03.119 - Cellulitis of unspecified part of limb (2) Venous insufficiency Code(s): I87.2 - VENOUS INSUFFICIENCY (CHRONIC) (PERIPHERAL) 3 non healing wounds of the legs 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
--- NOTE | 2018-02-08 15:18 | DS ---
Physical Examination Vital Signs: Vital Signs Temperature 98.3 F 02/08/18 15:02 Pulse Rate 71 02/08/18 15:02 Respiratory Rate 18 02/08/18 15:02 Blood Pressure 126/53 02/08/18 15:02 O2 Sat by Pulse Oximetry (%) 97 02/08/18 09:00 Labs: CBC, BMP 02/03/18 06:35 02/03/18 06:35 Discharge Summary Reason For Visit: CELLULITIS OF LOWER EXTREMITY Current Active Problems Cellulitis of leg (Acute) Condition: Fair - Instructions Referrals: Adi Nair [Primary Care Provider] - - Home Medications Comprehensive Discharge Medication List: Ambulatory Orders Aspirin [ASA -] 1 tab PO DAILY 09/03/17 Benicar - 20 mg PO DAILY 09/03/17 Vancomycin 2,000 mg IVPB Q24H #14 vial 02/08/18 dc home id to send prescription
[2018-02-08] MEDS: VANCOMYCIN 2,000 MG in DEXTROSE 5%-WATER - 500 ML IVPB SCH (18:01)
--- NOTE | 2018-02-08 18:42 | PN ---
Progress Note, Physician History of Present Illness: doing well - Current Medication List Current Medications: Active Medications Acetaminophen (Tylenol -) 650 mg PO Q6H PRN PRN Reason: FEVER Aspirin (Asa -) 81 mg PO DAILY [facility] Last Admin: 02/08/18 09:40 Dose: 81 mg Docusate Sodium (Colace -) 100 mg PO BID [facility] Last Admin: 02/08/18 09:40 Dose: 100 mg Heparin Sodium (Porcine) (Heparin -) 5,000 unit SQ BID [facility] Last Admin: 02/08/18 11:43 Dose: 5,000 unit IV Flush (Picc Line Flush) 8 ml IVPUSH PRN PRN PRN Reason: Protocol Vancomycin HCl 1,250 mg/ (Dextrose) 250 mls @ 333.333 mls/hr IVPB BID [facility] Valsartan (Diovan -) 160 mg PO DAILY [facility] Last Admin: 02/08/18 11:42 Dose: Not Given - Objective Vital Signs: Vital Signs Temperature 97.4 F L 02/08/18 18:00 Pulse Rate 69 02/08/18 18:00 Respiratory Rate 20 02/08/18 18:00 Blood Pressure 121/48 02/08/18 18:00 O2 Sat by Pulse Oximetry (%) 97 02/08/18 09:00 Constitutional: Yes: No Distress HENT: Yes: Atraumatic Neck: Yes: Supple Cardiovascular: Yes: Regular Rate and Rhythm Respiratory: Yes: CTA Bilaterally Gastrointestinal: Yes: Normal Bowel Sounds Extremities: Yes: Other (cellulitis much improved) Edema: Yes Edema: LLE: Trace, RLE: Trace Neurological: Yes: Alert, Oriented Labs: CBC, BMP 02/03/18 06:35 02/03/18 06:35 INR, PTT INR 1.16 (0.82-1.09) H 02/02/18 19:53 Problem List - Problems (1) Cellulitis of leg Assessment/Plan: on abx per id fu labs vanco level done dose determined by id picc line Code(s): L03.119 - CELLULITIS OF UNSPECIFIED PART OF LIMB Qualifiers: Laterality: unspecified laterality Qualified Code(s): L03.119 - Cellulitis of unspecified part of limb (2) Venous insufficiency Code(s): I87.2 - VENOUS INSUFFICIENCY (CHRONIC) (PERIPHERAL)
[2018-02-09] MEDS: VALSARTAN 160 MG TABLET (UD) PO SCH (09:11)
[2018-02-09] MEDS: ASPIRIN 81 MG CHEWABLE TABLETS PO SCH (09:11)
[2018-02-09] MEDS: DOCUSATE SODIUM 100 MG CAPSULE (FP) PO SCH (09:11)
[2018-02-09] MEDS ORDERED: VANCOMYCIN 1,250 MG in DEXTROSE 5%-WATER - 250 ML IVPB SCH (10:00)
[2018-02-09] MEDS: HEPARIN NA (PORCINE) 5,000 UNITS/ML 1ML VIAL SQ SCH (11:41)
--- NOTE | 2018-02-09 12:30 | PN ---
Progress Note, Physician History of Present Illness: patient stable no complaints picc in place - Current Medication List Current Medications: Active Medications Acetaminophen (Tylenol -) 650 mg PO Q6H PRN PRN Reason: FEVER Aspirin (Asa -) 81 mg PO DAILY [facility] Last Admin: 02/09/18 09:11 Dose: 81 mg Docusate Sodium (Colace -) 100 mg PO BID [facility] Last Admin: 02/09/18 09:11 Dose: 100 mg Heparin Sodium (Porcine) (Heparin -) 5,000 unit SQ BID [facility] Last Admin: 02/09/18 11:41 Dose: 5,000 unit IV Flush (Picc Line Flush) 8 ml IVPUSH PRN PRN PRN Reason: Protocol Vancomycin HCl 1,250 mg/ (Dextrose) 250 mls @ 333.333 mls/hr IVPB BID [facility] Last Admin: 02/09/18 11:41 Dose: 333.333 mls/hr Valsartan (Diovan -) 160 mg PO DAILY [facility] Last Admin: 02/09/18 09:11 Dose: Not Given - Objective Vital Signs: Vital Signs Temperature 97.1 F L 02/09/18 09:00 Pulse Rate 80 02/09/18 09:00 Respiratory Rate 18 02/09/18 09:00 Blood Pressure 112/62 02/09/18 09:00 O2 Sat by Pulse Oximetry (%) 97 02/08/18 21:00 Constitutional: Yes: No Distress, Calm Cardiovascular: Yes: Regular Rate and Rhythm Respiratory: Yes: Regular, CTA Bilaterally Gastrointestinal: Yes: Normal Bowel Sounds, Soft Musculoskeletal: Yes: WNL Extremities: Yes: Other Integumentary: Yes: Other Wound/Incision: Yes: Open to air Neurological: Yes: Alert, Oriented Psychiatric: Yes: Alert, Oriented Labs: CBC, BMP 02/03/18 06:35 02/03/18 06:35 INR, PTT INR 1.16 (0.82-1.09) H 02/02/18 19:53 Assessment/Plan Problem List - Problems (1) Cellulitis of leg Code(s): L03.119 - CELLULITIS OF UNSPECIFIED PART OF LIMB Qualifiers: Laterality: unspecified laterality Qualified Code(s): L03.119 - Cellulitis of unspecified part of limb (2) Venous insufficiency Code(s): I87.2 - VENOUS INSUFFICIENCY (CHRONIC) (PERIPHERAL) 3 non healing wounds of the legs 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
[2018-02-09 13:38] VITALS: BP 120/60; PULSE 85; TEMP 97.9
--- NOTE | 2018-02-09 17:51 | DS ---
Physical Examination Vital Signs: Vital Signs Temperature 97.9 F 02/09/18 13:37 Pulse Rate 85 02/09/18 13:37 Respiratory Rate 17 02/09/18 13:37 Blood Pressure 120/60 02/09/18 13:37 O2 Sat by Pulse Oximetry (%) 97 02/08/18 21:00 Constitutional: Yes: No Distress HENT: Yes: Atraumatic Neck: Yes: Supple Cardiovascular: Yes: Regular Rate and Rhythm Respiratory: Yes: CTA Bilaterally Gastrointestinal: Yes: Normal Bowel Sounds Extremities: Yes: Other (cellulitis b/l frances) Neurological: Yes: Alert, Oriented Labs: CBC, BMP 02/03/18 06:35 02/03/18 06:35 Discharge Summary Reason For Visit: CELLULITIS OF LOWER EXTREMITY Current Active Problems Cellulitis of leg (Acute) Condition: Fair - Instructions Referrals: Ann García MD [Staff Physician] - Adi Nair [Primary Care Provider] - Matias Ruiz MD [Staff Physician] - - Home Medications Comprehensive Discharge Medication List: Ambulatory Orders Aspirin [ASA -] 1 tab PO DAILY 09/03/17 Benicar - 20 mg PO DAILY 09/03/17 Vancomycin 1,250 mg IVPB BID #14 vial 02/09/18 co home
== END 2018-02-09 18:21 | disposition home or self-care (01) | DRG 603 ==
LOC: JER 19:20 → JERBED 22:17 → J5S 02-03 00:27
PROVIDERS: ADMIT Internal Medicine; ATTEND Internal Medicine
PROC: 02HV33Z Insertion of Infusion Device into Superior Vena Cava, Percutaneous Approach (ICD-10-PCS; principal; 2018-02-09)
PROC: B518ZZA Fluoroscopy of Superior Vena Cava, Guidance (ICD-10-PCS; 2018-02-09)
DX: L03.115 Cellulitis of right lower limb (principal); L03.116 Cellulitis of left lower limb; I87.2 Venous insufficiency (chronic) (peripheral); I10 Essential (primary) hypertension
CPT/HCPCS: 29581-LT; 29581-RT; 36415; 36569; 71045-TC-FY; 77001-TC-FY; 80053; 81003; 84484; 85025; 85610; 85730; 87040; 87070; 87086; 87186; 87205; 93005; 93010; 99284-25; A4649; A6196; C1751; G0463-25; G0480; J1644